=== PATIENT | male | born 1985 | race African-American/Black ===

== ENCOUNTER 2016-11-26 06:38 | Emergency (ER) | payer BC ==
[~2016-11-26] VITALS: Ht 185.4 cm; Wt 111.4 kg
[2016-11-26 06:41] VITALS: BP 151/83; TEMP 97.8
[2016-11-26 07:40] VITALS: PULSE 88
== END 2016-11-26 07:40 | disposition home or self-care (01) ==
LOC: COL.ER 06:38
DX: S86.012A Strain of left Achilles tendon, initial encounter (principal); M79.662 Pain in left lower leg; X58.XXXA Exposure to other specified factors, initial encounter; Y92.320 Baseball field as the place of occurrence of the external cause

== ENCOUNTER 2019-03-24 05:52 | Emergency (ER) | payer SELFPAY ==
[~2019-03-24] VITALS: Ht 185.4 cm; Wt 102.3 kg
[2019-03-24 06:00] VITALS: TEMP 97
[2019-03-24 06:39] LABS: BASO # 0.1 (0.0-0.2); BASO % 1.2 % (0.0-2.0); EOS # 0.1 (0.0-0.7); EOS % 1.4 % (0-4.0); GRAN # 2.3 (1.4-6.5); GRAN % 43.5 % (42.2-75.2); HEMATOCRIT 43.8 % (42.0-52.0); HEMOGLOBIN 14.4 g/dl (13.5-18.0); LYMPH # 2.1 (1.2-3.4); LYMPH % 41.5 % (20.0-51.0); MEAN CELL VOLUME 99 fl (80.0-100.0); MEAN CORPUSCULAR HEMOGLOBIN 33 pg (27.0-31.0); MEAN CORPUSCULAR HGB CONC 33 g/dl (33.0-37.0); MEAN PLATELET VOLUME 10.5 fl (7.4-10.4); MONO # 0.6 (0.1-0.6); MONO % 12.2 % (1.7-9.3); PLATELET COUNT 268 K/mm3 (130-400); RED BLOOD COUNT 4.42 M/mm3 (4.20-5.60); REDCELL DISTRIBUTION WIDTH-CV 11.8 % (11.5-14.5)
[2019-03-24 06:48] LABS: ALANINE AMINOTRANSFERASE 27 U/L (21-72); ALBUMIN 4.1 gm/dL (3.5-5.0); ALKALINE PHOSPHATASE 107 U/L (50-136); ANION GAP 11 mmol/L (7-16); AST,SGOT 49 U/L (15-37); BILIRUBIN,TOTAL 1.4 mg/dL (0.0-1.0); BLOOD UREA NITROGEN 15 mg/dL (9-20); CALCIUM 9.3 mg/dL (8.4-10.2); CARBON DIOXIDE 26 mmol/L (22-30); CHLORIDE 108 mmol/L (98-107); CREATININE, serum 1.22 (0.66-1.25); GLUCOSE 88 mg/dL (74-106); POTASSIUM 4.1 mmol/L (3.4-5.0); SODIUM 145 mmol/L (137-145); TOTAL PROTEIN 7.9 gm/dL (6.4-8.2)
[2019-03-24 06:57] LABS: PROTHROMBIN TIME 11.2 SECONDS (9.7-12.8)
[2019-03-24 07:00] LABS: TROPONIN-I < 0.012 ng/mL (0.000-0.035)
[2019-03-24 07:21] LABS: D-DIMER < 200.00 ng/mLDDu (200-230)
[2019-03-24] MEDS ORDERED: CEPHALEXIN500 M1 PO ×2 (07:33)
[2019-03-24 08:44] VITALS: BP 141/88; PULSE 73
== END 2019-03-24 08:45 | disposition home or self-care (01) ==
LOC: COL.ER 05:52
PROVIDERS: Emergency Medicine
DX: R55 Syncope and collapse (principal); F17.210 Nicotine dependence, cigarettes, uncomplicated
CPT/HCPCS: J7030

== ENCOUNTER 2019-04-20 10:24 | Emergency (ER) | payer BC ==
[~2019-04-20] VITALS: Ht 185.4 cm; Wt 102.3 kg
[~2019-04-20 10:24] MED LIST: CEPHALEXIN500 M1 PO
[2019-04-20 10:35] VITALS: BP 131/77; TEMP 98.8
[2019-04-20] MEDS ORDERED: NORCO 325 MG-51 TAB PO (11:11)
[2019-04-20 11:32] VITALS: PULSE 93
== END 2019-04-20 11:32 | disposition home or self-care (01) ==
LOC: COL.ER 10:24
DX: S62.307A Unspecified fracture of fifth metacarpal bone, left hand, initial encounter for closed fracture (principal); F17.210 Nicotine dependence, cigarettes, uncomplicated; W19.XXXA Unspecified fall, initial encounter; Y93.61 Activity, american tackle football
CPT/HCPCS: Q4021

== ENCOUNTER → 2020-03-03 | Outpatient (CLI) | payer BC ==
[~2020-03-03] MED LIST changes: +NORCO 325 MG-51 TAB PO
== END ==
LOC: ZCOL.LAB 15:09
DX: Z20.828 Contact with and (suspected) exposure to other viral communicable diseases (principal)

== ENCOUNTER 2021-02-07 17:19 | Emergency (ER) | payer BC ==
[~2021-02-07] VITALS: Ht 188 cm; Wt 115.9 kg
[2021-02-07 17:34] VITALS: BP 137/80; TEMP 97.9
[2021-02-07 18:54] VITALS: PULSE 74
== END 2021-02-07 18:55 | disposition home or self-care (01) ==
LOC: COL.ER 17:19
DX: S60.221A Contusion of right hand, initial encounter (principal); F17.210 Nicotine dependence, cigarettes, uncomplicated; X50.9XXA Other and unspecified overexertion or strenuous movements or postures, initial encounter; Y93.64 Activity, baseball

== ENCOUNTER 2021-04-15 08:49 | Emergency (ER) | payer BC ==
[~2021-04-15] VITALS: Ht 185.4 cm; Wt 113.6 kg
[2021-04-15 09:04] VITALS: TEMP 98.4
[2021-04-15 09:39] LABS: STREP SCREEN NEGATIVE
[2021-04-15 10:20] VITALS: BP 149/99; PULSE 95
== END 2021-04-15 10:22 | disposition home or self-care (01) ==
LOC: COL.ER 08:49
PROVIDERS: Student in an Organized Health Care Education/Training Program
DX: J02.9 Acute pharyngitis, unspecified (principal); Z20.822 Contact with and (suspected) exposure to COVID-19
CPT/HCPCS: J8540